=== PATIENT | female | born 1995 ===

== ENCOUNTER 2019-10-09 12:31 | Outpatient (CLI) | payer OTHER ==
--- NOTE | 2019-10-09 13:37 | MRI ---
MRI LUMBAR SPINE WITHOUT CONTRAST: INDICATION: Lumbar radicular pain. COMPARISON: No comparison. FINDINGS: The lumbar vertebrae maintain normal height and alignment. Lumbar vertebrae signal appears normal. There is loss of disk space with degenerative disk changes prominent at L5-S1. The other lumbar disk s are normally maintained and exhibit normal hydration and high T2 signal. No significant disk bulge or disk protrusion seen at L1-2, L2-3, L3-4, or L4-5. No central canal or foraminal stenosis at any of these levels. At L5-S1, there are degenerative disk changes noted above. There is an annular fissure with a small central protrusion which indents the anterior thecal sac. Slight inferior extension of the smaller p rotrusion is noted. There is mild facet arthrosis. This results in very mild central canal stenosis . IMPRESSION: Degenerative disk changes at L5-S1 with loss of disk space. There is annular fissure with a small fo pola protrusion centrally as described above. POS: [facility]
== END 2019-10-09 12:32 | disposition home or self-care (01) ==
LOC: SCSMRI 12:31
PROVIDERS: ATTEND Nurse Practitioner Family
DX: M54.16 Radiculopathy, lumbar region (principal); M51.27 Other intervertebral disc displacement, lumbosacral region; M51.37 Other intervertebral disc degeneration, lumbosacral region; Q05.7 Lumbar spina bifida without hydrocephalus
CPT/HCPCS: 72148